=== PATIENT | male | born 1975 | race African-American/Black ===

== ENCOUNTER 2016-11-09 18:52 | Emergency (ER) | payer OTHER ==
[~2016-11-09] VITALS: Ht 182.9 cm; Wt 99.8 kg
[2016-11-09 19:41] VITALS: BP 129/95
[2016-11-09] MEDS ORDERED: KEFLEX500 MG PO (19:49)
[2016-11-09] MEDS ORDERED: PREDNISONE 20 M20 M1 PO (19:49)
== END 2016-11-09 19:45 | disposition home or self-care (01) ==
LOC: ER 18:52
DX: L23.7 Allergic contact dermatitis due to plants, except food (principal); J45.909 Unspecified asthma, uncomplicated; M32.9 Systemic lupus erythematosus, unspecified; Z88.2 Allergy status to sulfonamides

== ENCOUNTER 2017-03-14 19:44 | Emergency (ER) | payer OTHER ==
[~2017-03-14] VITALS: Ht 180.3 cm; Wt 104.3 kg
[~2017-03-14 19:44] MED LIST: KEFLEX500 MG PO; PREDNISONE 20 M20 M1 PO
[2017-03-14] MEDS ORDERED: TESSALON PERLE100 MG PO (21:46)
[2017-03-14] MEDS ORDERED: VENTOLIN HFA 1818 GM INH (21:46)
== END 2017-03-14 22:32 | disposition home or self-care (01) ==
LOC: ER 19:44
DX: J40 Bronchitis, not specified as acute or chronic (principal)